=== PATIENT | male | born 1950 | race Hispanic/Latino ===

== ENCOUNTER 2020-05-10 10:28 | Day surgery (SDC) | payer OTHER ==
[~2020-05-10 10:28] MED LIST: LACTATED RINGERS 1,000 ML IV SCH; MIDAZOLAM 2 MG/2 ML INJ IV NR
[2020-05-10] MEDS ORDERED: fentaNYL 100 MCG/2 ML INJ IV PRN (11:05)
[2020-05-10] MEDS ORDERED: ONDANSETRON 4 MG/2 ML INJ IV PRN (11:05)
--- NOTE | 2020-05-10 11:05 | Anesthesia Consultation ---
Anesthesia Consult and Med Hx Date of service: 05/10/20 - Airway Anesthetic Teeth Evaluation: Dentures ROM Head & Neck: Adequate Mental/Hyoid Distance: Adequate Mallampati Class: Class II Intubation Access Assessment: Probably Good - Pulmonary Exam CTA: Yes - Cardiac Exam Cardiac Exam: RRR - Pre-Operative Health Status ASA Pre-Surgery Classification: ASA3 Proposed Anesthetic Plan: General - Pulmonary Hx Smoking: Yes (quit 5 yrs ago) Hx Respiratory Symptoms: No COPD: Yes Home Oxygen Therapy: No Hx Sleep Apnea: No (neg sleep study 2019) - Cardiovascular System Hx Hypertension: Yes (took antihypertensives this morning) Hx Heart Attack/AMI: No - Central Nervous System CVA: No Hx Back Pain: Yes - Endocrine Hx Renal Disease: No Hx Liver Disease: No Hx Non-Insulin Dependent Diabetes: Yes Hx Thyroid Disease: No - Other Systems Hx Cancer: Yes (hx superficial skin ca) Hx Obesity: No - Additional Comments Anesthesia Medical History Comments: No hx anesthetic complications.
--- NOTE | 2020-05-10 11:06 | Anesthesia Day of Surgery ---
Anesthesia Day of Surgery - Day of Surgery Patient Examined: Yes Patient H&P Reviewed: Yes Patient is NPO: Yes
[2020-05-10] MEDS ORDERED: ceFAZolin/STERILE WATER 2 GM/20 ML SYRINGE IV NR (11:09)
[2020-05-10] MEDS ORDERED: HYDROmorphone 1 MG/1 ML INJ ONE (11:26)
[2020-05-10] MEDS ORDERED: propofoL 200 MG/20 ML VIAL IV ONE (11:26)
[2020-05-10] MEDS ORDERED: LIDOCAINE MPF (2%) 20 MG/1 ML VIAL 5 ML ONE (11:29)
[2020-05-10] MEDS ORDERED: IOHEXOL 300 MG/ML 50ML IV ONE (12:29)
[2020-05-10] MEDS ORDERED: WATER FOR IRRIG STERILE 1,500 ML BOTTLE IR ONE (12:31)
[2020-05-10] MEDS ORDERED: ONDANSETRON 4 MG/2 ML INJ ONE (12:39)
--- NOTE | 2020-05-10 12:41 | Post Operative Note ---
Date of procedure: 05/10/20 Pre-op diagnosis: hemeaturia abn cytology Post-op diagnosis: same Findings: normal Procedure: cysto biopsies rpgs Anesthesia: GETA Surgeon: HOLLY BEVERLY Estimated blood loss: none Pathology: list (bladder) Specimen disposition: to lab Condition: stable Disposition: PACU
--- NOTE | 2020-05-10 12:42 | Discharge Summary ---
Short Stay Discharge Plan Activity: other (no straining ) Weight Bearing Status: Full Weight Bearing Diet: low fat, low cholesterol, low salt Special Instructions: other (inc fluids ) Follow up with: [facility] [Primary Care Provider] - 7 Days HOLLY BEVERLY MD [Staff Physician] - 7 Days
[2020-05-10] MEDS ORDERED: ePHEDrine SULFATE 50 MG/1 ML INJ ONE (12:55)
[2020-05-10 14:48] VITALS: BP 131/71
--- NOTE | 2020-05-10 14:55 | Cat Scan Report ---
CT ABDOMEN AND PELVIS WITHOUT CONTRAST INDICATION: S/P CYSTOSCOPY. TECHNIQUE: Axial CT images were obtained through the abdomen and pelvis without IV contrast. All CT scans at [facility] location are performed using CT dose reduction for ALARA by means of automated exposure control. COMPARISON: None available. FINDINGS: LOWER CHEST: Destructive bullous emphysema both lower lung kulkarni. LIVER: No significant abnormality. GALLBLADDER: No significant abnormality. BILE DUCTS: No significant abnormality. PANCREAS: No significant abnormality. SPLEEN: No significant abnormality. ADRENALS: Tiny hypodense 9 mm right adrenal nodule is diagnostic for adenoma with CT density -3 RIGHT KIDNEY and URETER: 3 nonobstructing right renal stones, largest of which measures 1.3 cm. No ur eteral stone or hydronephrosis. 4.3 cm right renal cyst. LEFT KIDNEY and URETER: No significant abnormality. STOMACH and SMALL BOWEL: No significant abnormality. COLON: Extensive sigmoid diverticulosis without diverticulitis. APPENDIX: No significant abnormality. PERITONEUM: No free fluid. No free air. No fluid collection. LYMPH NODES: No significant adenopathy. AORTA and ARTERIES: Extensive vascular calcifications nonaneurysmal aorta and iliac arteries IVC and VEINS: No significant abnormality. URINARY BLADDER: Contrast is noted in the urinary bladder which has a thickened wall. No extravasatio n of contrast seen. REPRODUCTIVE ORGANS: No significant abnormality. ADDITIONAL FINDINGS: None. SKELETAL SYSTEM: Osteopenia. Moderate degenerative changes lumbar spine and left hip IMPRESSION: 1. No CT evidence for intra or extraperitoneal bladder rupture. 2. Extensive sigmoid diverticulosis without diverticulitis 3. Right nephrolithiasis. 4. Tiny 9 mm right adrenal adenoma. No further follow-up imaging warranted. Signer Name: Frankie Juarez MD Signed: 05/10/2020 2:50 PM Workstation Name: [id number]
--- NOTE | 2020-05-10 15:05 | Post Anesthesia Evaluation ---
- Post Anesthesia Evaluation Patient Participated: Yes Airway Patent: Yes Stable Respiratory Function: Yes Nausea/Vomiting: No Temp > 96.8F: Yes Pain Manageable: Yes Adequeate Hydration: Yes Anesthesia Complications: No
--- NOTE | 2020-05-10 17:11 | Fluoroscopy Report ---
INTRAOPERATIVE FLUOROSCOPY: RETROGRADE PYELOGRAM INDICATION: ENLARGED PROSTATE. TECHNIQUE: Intraoperative spot images were obtained during the procedure. FINDINGS: No hydronephrosis. Calyces appear sharp. No intraluminal filling defects are identified. Please see p rocedure note for details. Fluoroscopy Time: 9 seconds. Fluoroscopy Images: 5. Signer Name: Gerard Major MD Signed: 05/10/2020 5:07 PM Workstation Name: [id number]
--- NOTE | 2020-05-10 21:39 | Operative Report ---
PREOPERATIVE DIAGNOSES: 1. Hematuria. 2. Two abnormal FISH cells. POSTOPERATIVE DIAGNOSES: 1. Hematuria. 2. Two abnormal FISH cells. PROCEDURE: Cystoscopy, bilateral retrogrades, bladder random biopsies. SURGEON: Dr. Wilfred Rose. ANESTHESIA: General. FINDINGS: This is a gentleman with hematuria and 2 abnormal cells. He now presents for cystoscopy. All risks and implications discussed. DESCRIPTION OF PROCEDURE: The patient was brought to the operating table. Following induction of anesthesia, placed in lithotomy position, prepped and draped in usual sterile fashion. Cystourethroscopy showed no papillary lesions. The bladder neck was open. The bladder was well visualized. There was clear efflux from each orifice. Retrograde showed delicate collecting system on each side. Three random biopsies were done. The patient tolerated the procedure well. He will get a CT without contrast to be sure that there are no renal masses, brought to recovery in stable condition. JOB# [id number] WILBER/SAM
== END 2020-05-10 14:45 | disposition home or self-care (01) ==
LOC: OR 10:28
PROVIDERS: ATTEND Urology
DX: R31.9 Hematuria, unspecified (principal); R89.6 Abnormal cytological findings in specimens from other organs, systems and tissues; E78.00 Pure hypercholesterolemia, unspecified; I10 Essential (primary) hypertension; J44.9 Chronic obstructive pulmonary disease, unspecified; M19.90 Unspecified osteoarthritis, unspecified site; E11.9 Type 2 diabetes mellitus without complications; Z86.19 Personal history of other infectious and parasitic diseases; Z79.899 Other long term (current) drug therapy; Z79.84 Long term (current) use of oral hypoglycemic drugs; Z87.891 Personal history of nicotine dependence; Z98.890 Other specified postprocedural states; Z85.828 Personal history of other malignant neoplasm of skin
CPT/HCPCS: 52204; 74176; 74420; 82962; 88112; 88305; C1758; J0690; J1170; J2250; J2405; J2704; J7120; Q9967; U0003; 88304